=== PATIENT | female | born 1950 | race Caucasian/White ===

== ENCOUNTER 2017-01-28 08:45 | Observation (INO) | payer OTHER, MEDICARE ==
[~2017-01-28] VITALS: Ht 157.5 cm; Wt 125.5 kg
[~2017-01-28 08:45] MED LIST: ALIGN4 MG PO; BIOTIN1000 MCG PO; BIOTIN1000 MICRO PO; Biotin PO; CELECOXIB200 MG PO; Claritin,Alavart PO; Colace PO; DIOVAN160 MG PO; DIOVAN80 MG PO; DYAZIDE, MA1 CAPSULE PO; Dyazide, Maxzide 37. PO; ENDOCET 5-3251 EACH PO; Ecotrin PO; Feosol PO; KLONOPIN0.5 M1 PO; LEVOFLOXACIN500 MG PO; LEVOTHYROXINE50 MCG PO; LO-DOSE ASPIRIN81 M1 PO; LOVENOX40 MG/0.4 SC; Levothroid,Synthroid PO; MIRALAX255 GM PO; PROBIOTIC1 EAC1 PO; PROVENTIL HFA6.7 GM IH; Percocet 5/325,Endoc PO; Proventil,Ventolin H IH; SENNA PLUS TAB1 EACH PO; SINGULAIR10 MG PO; SONATA10 MG PO; SYNTHROID50 MCG PO; Senokot S,Pericolace PO; VENTOLIN HFA18 GM IH; VITAMIN D2000 UNIT PO; VITAMIN E400 UNIT PO; VOLTAREN 1% GE100 GM TP; Vitamin D PO; Vitamin-E PO; WELLBUTRIN SR100 MG PO; WELLBUTRIN100 MG PO; Wellbutrin PO
[2017-01-28 09:33] LABS: HEMATOCRIT 35.3 % (36.0-46.0); MCH 32.9 PG (29.0-34.0); MCHC 33.4 G/DL (30.0-36.0); MCV 98.3 FL (83-99); MEAN PLAT.VOLUME 9.6 uM^3 (9.5-12.4); PLATELET COUNT 237 K/uL (156-360); RBC DIS.WIDTH-CV 13.2 % (11.8-14.6); RBC DIS.WIDTH-SD 47.3 % (39-53); RED BLOOD COUNT 3.59 M/uL (3.80-5.20); WHITE BLOOD COUNT 11.5 K/uL (4.1-10.2)
[2017-01-28 09:42] LABS: CHLORIDE 98 mEq/L (99-109); POTASSIUM 4.1 mEq/L (3.7-5.4); SODIUM 134 mEq/L (136-147)
[2017-01-28 09:44] LABS: GLUCOSE 124 mg/dL (70-99)
[2017-01-28 09:45] LABS: ANION GAP 12 MEQ/L (2-14)
[2017-01-28 09:46] LABS: TOTAL BILIRUBIN 0.4 mg/dL (0.0-1.0)
[2017-01-28 09:48] LABS: ALKALINE PHOSPHATASE 58 IU/L (3-129); GFR ESTIMATE (CALCULATED) 59 mL/min/
[2017-01-28 09:49] LABS: UREA NITROGEN (BUN) 25 mg/dL (9-23)
[2017-01-28 09:53] LABS: TROP-I INTERPRETATION NEGATIVE; TROPONIN-I < 0.01 ng/mL (0.0-0.30)
[2017-01-28] MEDS ORDERED: ASPIR 8181 M1 PO (12:57)
[2017-01-28] MEDS ORDERED: COLACE100 MG PO (12:58)
[2017-01-28] MEDS ORDERED: VOLTAREN 1% GE100 GM TP (12:58)
[2017-01-28 13:43] LABS: INTER. NORMALIZED RATIO 1.1; PROTHROMBIN TIME 11.6 SEC (10.2-12.9)
[2017-01-28 13:45] LABS: PTT 36.7 SEC (25-37)
[2017-01-28 14:40] VITALS: BP 140/79
[2017-01-28 17:45] VITALS: BP 144/74
[2017-01-28 20:22] VITALS: BP 138/93
[2017-01-28 23:54] VITALS: BP 126/58
[2017-01-29 03:30] VITALS: BP 132/65
[2017-01-29 08:12] VITALS: BP 144/69
[2017-01-29] MEDS ORDERED: PROVENTIL HFA6.7 GM IH (09:09)
[2017-01-29] MEDS ORDERED: PREDNISONE10 MG PO (09:11)
== END 2017-01-29 11:06 | disposition home or self-care (01) ==
LOC: EME 08:45 → EDOF 12:42 → ENRESERV 12:44 → 5WEST 14:37 → ENPENDDIS 01-29 → 5WEST 01-29 11:06
PROVIDERS: Nurse Practitioner Family
DX: J45.901 Unspecified asthma with (acute) exacerbation (principal); R09.02 Hypoxemia; E66.01 Morbid (severe) obesity due to excess calories; Z68.43 Body mass index [BMI] 50.0-59.9, adult; I10 Essential (primary) hypertension; R07.9 Chest pain, unspecified; Z77.22 Contact with and (suspected) exposure to environmental tobacco smoke (acute) (chronic); M32.9 Systemic lupus erythematosus, unspecified; F41.9 Anxiety disorder, unspecified; M79.7 Fibromyalgia; M79.89 Other specified soft tissue disorders; Z79.82 Long term (current) use of aspirin; Z96.653 Presence of artificial knee joint, bilateral; Z88.0 Allergy status to penicillin; Z88.2 Allergy status to sulfonamides; Z88.8 Allergy status to other drugs, medicaments and biological substances; Z91.040 Latex allergy status
CPT/HCPCS: 71275; 80053; 84484; 85027; 85610; 85730; 93005; 94640; 94640 76; 94799; 99202; 99281; 99285; G0378; J1650; J1885; J2270; J2930; J7030; J7509

== ENCOUNTER 2017-12-02 09:32 | Emergency (ER) | payer OTHER, MEDICARE ==
[~2017-12-02] VITALS: Ht 157.5 cm; Wt 109.4 kg
[~2017-12-02 09:32] MED LIST changes: +ASPIR 8181 M1 PO; +COLACE100 MG PO; +PREDNISONE10 MG PO
[2017-12-02 11:57] VITALS: BP 159/79
== END 2017-12-02 11:57 | disposition home or self-care (01) ==
LOC: EME 09:32
DX: H53.8 Other visual disturbances (principal); M32.9 Systemic lupus erythematosus, unspecified; M35.9 Systemic involvement of connective tissue, unspecified; J45.909 Unspecified asthma, uncomplicated; M79.7 Fibromyalgia; G43.909 Migraine, unspecified, not intractable, without status migrainosus; Z86.73 Personal history of transient ischemic attack (TIA), and cerebral infarction without residual deficits; Z90.49 Acquired absence of other specified parts of digestive tract; Z79.82 Long term (current) use of aspirin; Z91.040 Latex allergy status; Z88.2 Allergy status to sulfonamides; Z88.0 Allergy status to penicillin; Z88.1 Allergy status to other antibiotic agents; Z88.8 Allergy status to other drugs, medicaments and biological substances
CPT/HCPCS: 70450; 99281; 99283